=== PATIENT | male | born 1990 | race Caucasian/White ===

== ENCOUNTER 2021-11-15 20:48 | Emergency (ER) | payer SELFPAY ==
[2021-11-15 22:02] LABS: HEMOGLOBIN 14.6 gm/dl (14.0-17.5); RED BLOOD COUNT 4.85 M/UL (4.20-5.50)
[2021-11-15 22:15] LABS: BUN/CREATININE RATIO 16 (0-10)
[2021-11-15] MEDS ORDERED: AMOX TR-K CLV1 EAC4 PO (23:16)
[2021-11-15] MEDS ORDERED: NAPROSYN500 MG PO (23:16)
== END 2021-11-15 23:30 | disposition home or self-care (01) ==
LOC: ER1 20:48
PROVIDERS: Physician Assistant
DX: K57.32 Diverticulitis of large intestine without perforation or abscess without bleeding (principal)
CPT/HCPCS: 80053; 81001; 83690; 85025; 96374; 99284; J1885; Q9967

== ENCOUNTER 2021-12-20 15:27 | Emergency (ER) | payer SELFPAY ==
[~2021-12-20 15:27] MED LIST: AMOX TR-K CLV1 EAC4 PO; NAPROSYN500 MG PO
[2021-12-20 15:55] LABS: RED BLOOD COUNT 4.99 M/UL (4.20-5.50); WHITE BLOOD COUNT 7.2 K/UL (4.5-11.0)
[2021-12-20 16:23] LABS: BUN/CREATININE RATIO 12 (0-10)
== END 2021-12-20 21:30 | disposition home or self-care (01) ==
LOC: ER1 15:27
PROVIDERS: Emergency Medicine
DX: N13.2 Hydronephrosis with renal and ureteral calculous obstruction (principal); K57.30 Diverticulosis of large intestine without perforation or abscess without bleeding; Z87.442 Personal history of urinary calculi
CPT/HCPCS: 80053; 81001; 83690; 85025; 96374; 96375; 99284; J2270; J2405